=== PATIENT | male | born 1980 | race African-American/Black ===

== ENCOUNTER 2017-07-05 09:00 | Inpatient (IN) | payer OTHER ==
[2017-07-05 09:23] VITALS: BMI 23.0
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
[2017-07-05] MEDS ORDERED: MAGNESIUM CITRATE 300 ML BOTTLE PO PRN (11:35)
[2017-07-05] MEDS ORDERED: LOPERAMIDE HCL 2 MG CAPSULE PO PRN (11:35)
[2017-07-05] MEDS ORDERED: IBUPROFEN 400 MG TABLET (FP) PO PRN (11:35)
[2017-07-05] MEDS ORDERED: guaiFENesin/D-METHORPHAN HB 10 ML UNIT-DOSE CUPS PO PRN (11:35)
[2017-07-05] MEDS ORDERED: MAG HYDROX/AL HYDROX/SIMETH 30 ML UNIT-DOSE CUP PO PRN (11:35)
[2017-07-05] MEDS ORDERED: P-EPHED 60MG/TRIPROLIDI 2.5MG TABLET PO PRN (11:35)
[2017-07-05] MEDS ORDERED: NICOTINE POLACRILEX 2 MG GUM BUC PRN (11:35)
[2017-07-05] MEDS ORDERED: MAGNESIUM HYDROX 2400MG/30ML ORAL SUSPENSION 30 ML CUP PO PRN (11:35)
[2017-07-05] MEDS ORDERED: MENTHOL/PHENOL 1 EACH UD MM PRN (11:35)
[2017-07-05] MEDS ORDERED: METHADONE HCL 10 MG TABLET (FOR DETOX USE ONLY) PO ONE ×2 (11:50→23:00)
[2017-07-05] MEDS: diazePAM 5 MG TABLET PO PRN ×2 (13:39→22:27)
[2017-07-05] MEDS: NICOTINE 21 MG/24 HOURS TOPICAL PATCH TD SCH (13:40)
--- NOTE | 2017-07-05 15:54 | CONSULT ---
[facility] Psychiatric Consult - Data Date of interview: 07/05/17 Admission source: [facility] Identifying data: Pt. is a 36 year old single male, father of two, unemployed, homeless but reports that he recevies food stamps. This is patient's first admission to detox. Pt. admitted to for heroin and cocaine dependence. Substance Abuse History: Following information confirmed with Mr Marcos: Smoking Cessation. Smoking history: Current every day smoker. Have you smoked in the past 12 months: Yes. Aproximately how many cigarettes per day: 10. Hx Chewing Tobacco Use: No. Initiated information on smoking cessation: Yes. ' Breaking Loose' booklet given: 07/05/17. - Substance & Tx. History. Hx Alcohol Use: No. Hx Substance Use: Yes. Substance Use Type: Cocaine, Heroin. - Substances Abused. Heroin. Route: Inhalation. Frequency: Daily. Amount used: 10 bags. Age of first use: 26. Date of Last Use: 07/05/17. Cocaine. Route: Inhalation. Frequency: Daily. Amount used: 5 bags. Age of first use : 20. Date of Last Use: 07/04/17 Medical History: hx of gonnorhea and chalmydia Psychiatric History: Pt. denies h/o psychiatric hospitalizations, suicide attempt and outpatient care. 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 Pt. denies suicidal and homicida ideation. Physical/Sexual Abuse/Trauma History: Denies. Mental Status Exam - Mental Status Exam Alert and Oriented to: Time, Place, Person Cognitive Function: Good Patient Appearance: Well Groomed Mood: Euthymic Affect: Mood Congruent Patient Behavior: Appropriate, Cooperative Speech Pattern: Clear, Appropriate Voice Loudness: Normal Thought Process: Intact, Goal Oriented Thought Disorder: Not Present Hallucinations: Denies Suicidal Ideation: Denies Homicidal Ideation: Denies Insight/Judgement: Poor Sleep: Poorly Appetite: Fair Muscle strength/Tone: Normal Gait/Station: Normal Psychiatric Findings - Problem List ([place] 1, 2,3) (1) Cocaine dependence Current Visit: Yes Status: Acute (2) Nicotine dependence Current Visit: Yes Status: Acute (3) Opioid dependence with withdrawal Current Visit: Yes Status: Acute (4) Insomnia Current Visit: Yes Status: Acute - Initial Treatment Plan Initial Treatment Plan: Psychoeducation provided. Detoxification in progress. Trazodone 50mg qhs. Benefits and side effects (priapism). Verbal consent given. Will continue to monitor.
[2017-07-05 17:29] LABS: URINE APPEARANCE CLEAR; URINE BILIRUBIN NEGATIVE (NEGATIVE); URINE BLOOD NEGATIVE (NEGATIVE); URINE COLOR YELLOW; URINE GLUCOSE (UA) NEGATIVE (NEGATIVE); URINE KETONE TRACE (NEGATIVE); URINE LEUK ESTERASE NEGATIVE (NEGATIVE); URINE NITRITE NEGATIVE (NEGATIVE); URINE PROTEIN NEGATIVE (NEGATIVE)
[2017-07-05] MEDS: THIAMINE HCL 100 MG TABLET (FP) PO SCH (22:26)
[2017-07-05] MEDS: traZODone HCL 50 MG TABLET (FP) PO SCH (22:26)
[2017-07-06] MEDS ORDERED: METHADONE HCL 10 MG TABLET (FOR DETOX USE ONLY) PO ONE (10:00)
[2017-07-06 10:03] LABS: HEMATOCRIT 35.5 % (35.4-49); HEMOGLOBIN 11.9 GM/dL (11.7-16.9); MCH 31.4 pg (25.7-33.7); MCHC 33.6 g/dl (32.0-35.9); MEAN CELL VOLUME 93.6 fl (80-96); MEAN PLT VOLUME 7.3 fl (7.5-11.1); PLATELET COUNT 380 K/MM3 (134-434); RBC 3.79 M/mm3 (4.00-5.60); RDW 13.5 % (11.9-15.9); WHITE BLOOD COUNT 7.7 K/mm3 (4.0-10.0)
[2017-07-06 10:09] LABS: ALBUMIN 3.7 g/dl (3.4-5.0); ALK PHOS 74 U/L (45-117); ANION GAP 8 (8-16); BILIRUBIN,TOTAL 0.2 mg/dL (0.2-1.0); BLOOD UREA NITROGEN 14 mg/dL (7-18); CALCIUM 8.2 mg/dL (8.5-10.1); CHLORIDE 103 mmol/L (98-107); CO2 30 mmol/L (21-32); CREATININE 0.8 mg/dL (0.7-1.3); GLUCOSE,RANDOM 108 mg/dL (74-106); POTASSIUM 3.8 mmol/L (3.5-5.1); SGOT/AST 21 U/L (15-37); SGPT/ALT 21 U/L (12-78); SODIUM 141 mmol/L (136-145); TOT PROT 6.7 g/dl (6.4-8.2)
--- NOTE | 2017-07-06 10:33 | EKG ---
Test Reason : Blood Pressure : / mmHG Vent. Rate : 055 BPM Atrial Rate : 055 BPM P-R Int : 166 ms QRS Dur : 096 ms QT Int : 446 ms P-R-T Axes : 037 081 064 degrees QTc Int : 426 ms SINUS BRADYCARDIA OTHERWISE NORMAL ECG NO PREVIOUS ECGS AVAILABLE Confirmed by SCOTT DUGGAN MD ([id number]) on 07/06/2017 10:32:26 AM Referred By: Confirmed By:SCOTT DUGGAN MD
--- NOTE | 2017-07-06 10:49 | PN ---
BHS COWS - Scale Resting Pulse: 0= [place] 80 or Below Sweatin= Chills/Flushing Restless Observation: 3= Extraneous Movement Pupil Size: 0= Normal to Room Light Bone or Joint Aches: 4=Acute Joint/Muscle Pain Runny Nose/ Eye Tearin= None GI Upset > 30mins: 0= None Tremor Observation of Outstretched Hands: 2= Slight Tremor Visible Yawning Observation: 1= 1-2x During Session Anxiety or Irritability: 2=Irritable/Anxious Goose Flesh Skin: 0=Smooth Skin COWS Score: 13 BHS Progress Note (SOAP) Subjective: ANXIETY,SWEATS/CHILLS,FATIGUE. Objective: 07/06/17 10:48 Vital Signs 07/06/17 07/06/17 04:16 06:05 Temperature 96.1 F L Pulse Rate 55 L Respiratory 18 16 Rate Blood Pressure 94/57 Laboratory Last Values WBC 7.7 K/mm3 (4.0-10.0) 07/06/17 05:40 RBC 3.79 M/mm3 (4.00-5.60) L 07/06/17 05:40 Hgb 11.9 GM/dL (11.7-16.9) 07/06/17 05:40 Hct 35.5 % (35.4-49) 07/06/17 05:40 MCV 93.6 fl (80-96) 07/06/17 05:40 MCH 31.4 pg (25.7-33.7) 07/06/17 05:40 MCHC 33.6 g/dl (32.0-35.9) 07/06/17 05:40 RDW 13.5 % (11.9-15.9) 07/06/17 05:40 Plt Count 380 K/MM3 (134-434) 07/06/17 05:40 MPV 7.3 fl (7.5-11.1) L 07/06/17 05:40 Sodium 141 mmol/L (136-145) 07/06/17 05:40 Potassium 3.8 mmol/L (3.5-5.1) 07/06/17 05:40 Chloride 103 mmol/L (98-107) 07/06/17 05:40 Carbon Dioxide 30 mmol/L (21-32) 07/06/17 05:40 Anion Gap 8 (8-16) 07/06/17 05:40 BUN 14 mg/dL (7-18) 07/06/17 05:40 Creatinine 0.8 mg/dL (0.7-1.3) 07/06/17 05:40 Creat Clearance w eGFR > 60 (>60) 07/06/17 05:40 Random Glucose 108 mg/dL (74-106) H 07/06/17 05:40 Calcium 8.2 mg/dL (8.5-10.1) L 07/06/17 05:40 Total Bilirubin 0.2 mg/dL (0.2-1.0) 07/06/17 05:40 AST 21 U/L (15-37) 07/06/17 05:40 ALT 21 U/L (12-78) 07/06/17 05:40 Alkaline Phosphatase 74 U/L (45-117) 07/06/17 05:40 Total Protein 6.7 g/dl (6.4-8.2) 07/06/17 05:40 Albumin 3.7 g/dl (3.4-5.0) 07/06/17 05:40 Urine Color Yellow 07/05/17 16:30 Urine Appearance Clear 07/05/17 16:30 Urine pH 5.0 (5.0-8.0) 07/05/17 16:30 Ur Specific [place] 1.031 (1.001-1.035) 07/05/17 16:30 Urine Protein Negative (NEGATIVE) 07/05/17 16:30 Urine Glucose (UA) Negative (NEGATIVE) 07/05/17 16:30 Urine Ketones Trace (NEGATIVE) H 07/05/17 16:30 Urine Blood Negative (NEGATIVE) 07/05/17 16:30 Urine Nitrite Negative (NEGATIVE) 07/05/17 16:30 Urine Bilirubin Negative (NEGATIVE) 07/05/17 16:30 Urine Urobilinogen 2.0 mg/dL (0.2-1.0) 07/05/17 16:30 Ur Leukocyte Esterase Negative (NEGATIVE) 07/05/17 16:30 Assessment: 07/06/17 10:49 WITHDRAWAL SX Plan: CONTINUE DETOX.
[2017-07-06] MEDS: diazePAM 5 MG TABLET PO PRN ×2 (10:55→22:10)
[2017-07-06] MEDS: PRENATAL VITAMINS W/ FOLIC ACID TABLET (FP) PO SCH (10:55)
[2017-07-06] MEDS: NICOTINE 21 MG/24 HOURS TOPICAL PATCH TD SCH (10:56)
[2017-07-06] MEDS: traZODone HCL 50 MG TABLET (FP) PO SCH (22:10)
[2017-07-06] MEDS: THIAMINE HCL 100 MG TABLET (FP) PO SCH (22:10)
[2017-07-07] MEDS ORDERED: METHADONE HCL 5 MG TABLET (FOR DETOX USE ONLY) PO ONE (10:00)
[2017-07-07] MEDS ORDERED: ONDANSETRON *ODT* 4 MG TABLET SL ONE (10:43)
[2017-07-07] MEDS: PRENATAL VITAMINS W/ FOLIC ACID TABLET (FP) PO SCH (10:44)
[2017-07-07] MEDS: NICOTINE 21 MG/24 HOURS TOPICAL PATCH TD SCH (10:45)
[2017-07-07] MEDS: ACETAMINOPHEN 325 MG TABLET (FP) PO PRN ×3 (14:33→22:11)
[2017-07-07] MEDS ORDERED: ONDANSETRON *ODT* 4 MG TABLET SL PRN (14:55)
--- NOTE | 2017-07-07 14:59 | PN ---
BHS COWS - Scale Resting Pulse: 1= [place] 81-100 Sweatin= Chills/Flushing Restless Observation: 1= Difficult to Sit Still Pupil Size: 0= Normal to Room Light Bone or Joint Aches: 1= Mild Discomfort Runny Nose/ Eye Tearin= None GI Upset > 30mins: 5=Frequent Vomit/Diarrhea Tremor Observation of Outstretched Hands: 2= Slight Tremor Visible Yawning Observation: 0= None Anxiety or Irritability: 4=Extreme Anxiety Goose Flesh Skin: 0=Smooth Skin COWS Score: 15 BHS Progress Note (SOAP) Subjective: Stomach Cramping, Vomiting, Anxious, Tremors. Objective: PATIENT A & O X 3, OBSERVED AMBULATING ON UNIT. NO ACUTE DISTRESS. 07/07/17 14:57 Vital Signs Temperature 97.5 F L 07/07/17 13:59 Pulse Rate 63 07/07/17 13:59 Respiratory Rate 16 07/07/17 13:59 Blood Pressure 111/79 07/07/17 13:59 O2 Sat by Pulse Oximetry (%) Laboratory Tests 07/05/17 07/06/17 07/06/17 16:30 05:40 05:40 WBC 7.7 RBC 3.79 L Hgb 11.9 Hct 35.5 MCV 93.6 MCH 31.4 MCHC 33.6 RDW 13.5 Plt Count 380 MPV 7.3 L Sodium 141 Potassium 3.8 Chloride 103 Carbon Dioxide 30 Anion Gap 8 BUN 14 Creatinine 0.8 Creat Clearance w eGFR > 60 Random Glucose 108 H Calcium 8.2 L Total Bilirubin 0.2 AST 21 ALT 21 Alkaline Phosphatase 74 Total Protein 6.7 Albumin 3.7 Urine Color Yellow Urine Appearance Clear Urine pH 5.0 Ur Specific [place] 1.031 Urine Protein Negative Urine Glucose (UA) Negative Urine Ketones Trace H Urine Blood Negative Urine Nitrite Negative Urine Bilirubin Negative Urine Urobilinogen 2.0 Ur Leukocyte Esterase Negative RPR Titer 07/06/17 05:40 WBC RBC Hgb Hct MCV MCH MCHC RDW Plt Count MPV Sodium Potassium Chloride Carbon Dioxide Anion Gap BUN Creatinine Creat Clearance w eGFR Random Glucose Calcium Total Bilirubin AST ALT Alkaline Phosphatase Total Protein Albumin Urine Color Urine Appearance Urine pH Ur Specific [place] Urine Protein Urine Glucose (UA) Urine Ketones Urine Blood Urine Nitrite Urine Bilirubin Urine Urobilinogen Ur Leukocyte Esterase RPR Titer Nonreactive LABS NOTED. Assessment: 07/07/17 14:57 WITHDRAWAL SYMPTOMS. Plan: CONTINUE DETOX. PRN ZOFRAN SL FOR VOMITING. INCREASE DAILY PO FLUID INTAKE.
[2017-07-07] MEDS: diazePAM 5 MG TABLET PO PRN (18:13)
[2017-07-07] MEDS: traZODone HCL 50 MG TABLET (FP) PO SCH (22:10)
[2017-07-07] MEDS: THIAMINE HCL 100 MG TABLET (FP) PO SCH (22:10)
[2017-07-08] MEDS: ACETAMINOPHEN 325 MG TABLET (FP) PO PRN (01:13)
[2017-07-08] MEDS: hydrOXYzine PAMOATE 25 MG CAPSULE (FP) PO PRN ×3 (01:14→22:02)
[2017-07-08] MEDS: diazePAM 5 MG TABLET PO PRN (02:56)
[2017-07-08] MEDS ORDERED: METHADONE HCL 5 MG TABLET (FOR DETOX USE ONLY) PO ONE ×2 (10:00→13:00)
[2017-07-08] MEDS: NICOTINE 21 MG/24 HOURS TOPICAL PATCH TD SCH (12:00)
[2017-07-08] MEDS: PRENATAL VITAMINS W/ FOLIC ACID TABLET (FP) PO SCH (12:00)
[2017-07-08] MEDS ORDERED: METHADONE HCL 10 MG TABLET (FOR DETOX USE ONLY) PO ONE (12:20)
--- NOTE | 2017-07-08 15:42 | PN ---
BHS Progress Note (SOAP) Subjective: Anxious, sweating, interrupted sleep Objective: 07/08/17 15:39 Last Vital Signs Temp Pulse Resp BP Pulse Ox 97.1 F L 80 20 103/71 07/08/17 14:16 07/08/17 14:16 07/08/17 14:16 07/08/17 14:16 Laboratory Tests 07/05/17 07/06/17 07/06/17 16:30 05:40 05:40 WBC 7.7 RBC 3.79 L Hgb 11.9 Hct 35.5 MCV 93.6 MCH 31.4 MCHC 33.6 RDW 13.5 Plt Count 380 MPV 7.3 L Sodium 141 Potassium 3.8 Chloride 103 Carbon Dioxide 30 Anion Gap 8 BUN 14 Creatinine 0.8 Creat Clearance w eGFR > 60 Random Glucose 108 H Calcium 8.2 L Total Bilirubin 0.2 AST 21 ALT 21 Alkaline Phosphatase 74 Total Protein 6.7 Albumin 3.7 Urine Color Yellow Urine Appearance Clear Urine pH 5.0 Ur Specific [place] 1.031 Urine Protein Negative Urine Glucose (UA) Negative Urine Ketones Trace H Urine Blood Negative Urine Nitrite Negative Urine Bilirubin Negative Urine Urobilinogen 2.0 Ur Leukocyte Esterase Negative RPR Titer 07/06/17 05:40 WBC RBC Hgb Hct MCV MCH MCHC RDW Plt Count MPV Sodium Potassium Chloride Carbon Dioxide Anion Gap BUN Creatinine Creat Clearance w eGFR Random Glucose Calcium Total Bilirubin AST ALT Alkaline Phosphatase Total Protein Albumin Urine Color Urine Appearance Urine pH Ur Specific [place] Urine Protein Urine Glucose (UA) Urine Ketones Urine Blood Urine Nitrite Urine Bilirubin Urine Urobilinogen Ur Leukocyte Esterase RPR Titer Nonreactive Labs noted Assessment: 07/08/17 15:41 Withdrawal symptoms Plan: Continue detox
[2017-07-08] MEDS: traZODone HCL 50 MG TABLET (FP) PO SCH (22:02)
[2017-07-08] MEDS: THIAMINE HCL 100 MG TABLET (FP) PO SCH (22:02)
[2017-07-09] MEDS: PRENATAL VITAMINS W/ FOLIC ACID TABLET (FP) PO SCH (09:33)
[2017-07-09] MEDS: hydrOXYzine PAMOATE 25 MG CAPSULE (FP) PO PRN ×2 (09:33→23:07)
[2017-07-09] MEDS: ACETAMINOPHEN 325 MG TABLET (FP) PO PRN (09:34)
[2017-07-09] MEDS: NICOTINE 21 MG/24 HOURS TOPICAL PATCH TD SCH (09:35)
[2017-07-09] MEDS ORDERED: METHADONE HCL 10 MG TABLET (FOR DETOX USE ONLY) PO ONE (10:00)
--- NOTE | 2017-07-09 12:35 | PN ---
BHS Progress Note (SOAP) Subjective: Nausea Abd pain sweats Objective: 07/09/17 12:34 A & O x 3 irritable Ambulatory with steady gait Vital Signs Temperature 98.6 F 07/09/17 09:54 Pulse Rate 62 07/09/17 09:54 Respiratory Rate 18 07/09/17 09:54 Blood Pressure 106/69 07/09/17 09:54 O2 Sat by Pulse Oximetry (%) Assessment: 07/09/17 12:34 withdrawal sx Plan: continue detox increase hydration
[2017-07-09 22:14] VITALS: BP 98/56; PULSE 67; TEMP 97.6
[2017-07-09] MEDS: traZODone HCL 50 MG TABLET (FP) PO SCH (22:20)
[2017-07-09] MEDS: THIAMINE HCL 100 MG TABLET (FP) PO SCH (22:20)
[2017-07-10] MEDS: hydrOXYzine PAMOATE 25 MG CAPSULE (FP) PO PRN (03:19)
[2017-07-10] MEDS ORDERED: METHADONE HCL 5 MG TABLET (FOR DETOX USE ONLY) PO ONE ×2 (06:00→09:00)
--- NOTE | 2017-07-10 13:56 | DS ---
[facility] Detox Discharge Summary Admission Date: 07/05/17 Discharge Date: 07/10/17 - History Present History: Cocaine Dependence, Opioid Dependence Additional Comments: PATIENT RETURNING TO [facility] ([facility]) FOR AFTERCARE. PATIENT WAS DISCHARGED FROM DETOX UNIT IN STABLE MEDICAL CONDITION. Pertinent Past History: Depression, Nicotine Dependence, Weight Loss, Insomnia, Bipolar Disorder. - Physical Exam Results Vital Signs: Vital Signs Temperature 97.6 F 07/09/17 22:14 Pulse Rate 67 07/09/17 22:14 Respiratory Rate 18 07/09/17 22:14 Blood Pressure 98/56 07/09/17 22:14 O2 Sat by Pulse Oximetry (%) Pertinent Admission Physical Exam Findings: WITHDRAWAL SYMPTOMS. Laboratory Tests 07/05/17 07/06/17 07/06/17 16:30 05:40 05:40 WBC 7.7 RBC 3.79 L Hgb 11.9 Hct 35.5 MCV 93.6 MCH 31.4 MCHC 33.6 RDW 13.5 Plt Count 380 MPV 7.3 L Sodium 141 Potassium 3.8 Chloride 103 Carbon Dioxide 30 Anion Gap 8 BUN 14 Creatinine 0.8 Creat Clearance w eGFR > 60 Random Glucose 108 H Calcium 8.2 L Total Bilirubin 0.2 AST 21 ALT 21 Alkaline Phosphatase 74 Total Protein 6.7 Albumin 3.7 Urine Color Yellow Urine Appearance Clear Urine pH 5.0 Ur Specific [place] 1.031 Urine Protein Negative Urine Glucose (UA) Negative Urine Ketones Trace H Urine Blood Negative Urine Nitrite Negative Urine Bilirubin Negative Urine Urobilinogen 2.0 Ur Leukocyte Esterase Negative RPR Titer 07/06/17 05:40 WBC RBC Hgb Hct MCV MCH MCHC RDW Plt Count MPV Sodium Potassium Chloride Carbon Dioxide Anion Gap BUN Creatinine Creat Clearance w eGFR Random Glucose Calcium Total Bilirubin AST ALT Alkaline Phosphatase Total Protein Albumin Urine Color Urine Appearance Urine pH Ur Specific [place] Urine Protein Urine Glucose (UA) Urine Ketones Urine Blood Urine Nitrite Urine Bilirubin Urine Urobilinogen Ur Leukocyte Esterase RPR Titer Nonreactive LABS NOTED. - Treatment Hospital Course: Detox Protocol Followed, Detoxed Safely, Responded well, Discharged Condition Good Patient has Accepted a Rehab Referral to: PATIENT GOING TO [facility] - Medication Discharge Medications: Ambulatory Orders NK [No Known Home Medication] 07/05/17 - Diagnosis (1) Bipolar disorder Status: Chronic Qualifiers: Active/Remission status: remission status unspecified Qualified Code(s): F31.9 - Bipolar disorder, unspecified (2) Cocaine dependence Status: Chronic Qualifiers: Substance use status: uncomplicated Qualified Code(s): F14.20 - Cocaine dependence, uncomplicated (3) Depression Status: Chronic Qualifiers: Depression Type: unspecified Qualified Code(s): F32.9 - Major depressive disorder, single episode, unspecified (4) Nicotine dependence Status: Chronic Qualifiers: Nicotine product type: cigarettes Substance use status: in withdrawal Qualified Code(s): F17.213 - Nicotine dependence, cigarettes, with withdrawal (5) Opioid dependence with withdrawal Status: Acute (6) Weight loss Status: Acute (7) Insomnia Status: Acute Qualifiers: Insomnia type: unspecified Qualified Code(s): G47.00 - Insomnia, unspecified - AMA Did Patient Leave Against Medical Advice: No
== END 2017-07-10 09:00 | disposition home or self-care (01) | DRG 773 ==
LOC: YASAS 09:00 → Y3N 11:09
PROVIDERS: ADMIT Internal Medicine; ATTEND Internal Medicine
PROC: HZ2ZZZZ Detoxification Services for Substance Abuse Treatment (ICD-10-PCS; principal; 2017-07-05)
DX: F11.23 Opioid dependence with withdrawal (principal); F14.20 Cocaine dependence, uncomplicated; F17.213 Nicotine dependence, cigarettes, with withdrawal; F31.9 Bipolar disorder, unspecified; F32.9 Major depressive disorder, single episode, unspecified; G47.00 Insomnia, unspecified; Z87.438 Personal history of other diseases of male genital organs; Z87.898 Personal history of other specified conditions; Z59.0 Homelessness
CPT/HCPCS: 36415; 80053; 81003; 85027; 86593; 93005; 93010

== ENCOUNTER 2021-08-29 19:21 | Inpatient (IN) | payer OTHER ==
[2021-08-29] MEDS ORDERED: BENZOCAINE/MENTHOL (CHLORASEPTIC ) LOZENGE MM PRN (20:13)
[2021-08-29] MEDS ORDERED: guaiFENesin 200 MG/10 ML 10 ML UNIT-DOSE CUPS PO PRN (20:13)
[2021-08-29] MEDS ORDERED: NICOTINE POLACRILEX 2 MG GUM BUC PRN (20:13)
[2021-08-29] MEDS ORDERED: LOPERAMIDE HCL 2 MG CAPSULE PO PRN (20:13)
[2021-08-29] MEDS ORDERED: BISMUTH SUBSALICYLATE 524 MG/30 ML PO PRN (20:13)
[2021-08-29] MEDS ORDERED: NALOXONE HCL 0.4 MG/ML VIAL IM PRN (20:13)
[2021-08-29] MEDS ORDERED: DICYCLOMINE HCL 10 MG CAPSULE PO PRN (20:13)
[2021-08-29] MEDS ORDERED: MAG HYDROX/AL HYDROX/SIMETH 30 ML UNIT-DOSE CUP PO PRN (20:13)
[2021-08-29] MEDS ORDERED: IBUPROFEN 400 MG TABLET (FP) PO PRN (20:13)
[2021-08-29] MEDS ORDERED: ONDANSETRON *ODT* 4 MG TABLET SL PRN (20:13)
[2021-08-29] MEDS ORDERED: MAGNESIUM CITRATE 300 ML BOTTLE PO PRN (20:13)
[2021-08-29] MEDS ORDERED: ACETAMINOPHEN 325 MG TABLET (FP) PO PRN ×2 (20:13)
[2021-08-29] MEDS ORDERED: MAGNESIUM HYDROX 2400MG/30ML ORAL SUSPENSION 30 ML CUP PO PRN (20:13)
[2021-08-29] MEDS ORDERED: P-EPHED 60MG/TRIPROLIDI 2.5MG TABLET PO PRN (20:13)
[2021-08-29 21:03] VITALS: BMI 21.5
[2021-08-29] MEDS ORDERED: MELATONIN 5 MG TABLETS PO SCH (22:00)
[2021-08-30] MEDS: THIAMINE HCL 100 MG TABLET (FP) PO SCH ×2 (00:41→22:43)
[2021-08-30] MEDS ORDERED: cloNIDine HCL 0.1 MG TABLET PO PRN (09:26)
[2021-08-30] MEDS ORDERED: diazePAM 5 MG TABLET PO PRN (10:32)
[2021-08-30] MEDS ORDERED: methaDONE HCL 10 MG TABLET (FOR DETOX USE ONLY) ONE (11:24)
[2021-08-30] MEDS: PRENATAL VITAMINS W/ FOLIC ACID TABLET (FP) PO SCH (11:27)
[2021-08-30] MEDS: NICOTINE 14 MG/24 HOURS TOPICAL PATCH TD SCH (11:29)
[2021-08-30 12:51] LABS: HEMATOCRIT 35.6 % (35.4-49); HEMOGLOBIN 11.7 GM/dL (11.7-16.9); MCH 31.5 pg (25.7-33.7); MCHC 32.9 g/dl (32.0-35.9); MEAN CELL VOLUME 95.9 fl (80-96); MEAN PLT VOLUME 7.1 fl (7.5-11.1); PLATELET COUNT 326 10^3/uL (134-434); RBC 3.72 M/mm3 (4.00-5.60); RDW 13.2 % (11.9-15.9); WHITE BLOOD COUNT 4.3 K/mm3 (4.0-10.0)
[2021-08-30 13:07] LABS: CALCIUM 8.8 mg/dL (8.5-10.1)
[2021-08-30 13:08] LABS: ALBUMIN 3.3 g/dl (3.4-5.0); BLOOD UREA NITROGEN 15.2 mg/dL (7-18)
[2021-08-30 13:11] LABS: CREATININE 0.7 mg/dL (0.55-1.3)
[2021-08-30 13:12] LABS: BILIRUBIN,TOTAL 0.2 mg/dL (0.2-1); TOT PROT 6.1 g/dl (6.4-8.2)
[2021-08-30 14:40] LABS: PH,URINE 6.5 (5.0-8.0); URINE APPEARANCE CLEAR; URINE BILIRUBIN NEGATIVE (NEGATIVE); URINE COLOR YELLOW; URINE GLUCOSE (UA) NEGATIVE (NEGATIVE); URINE KETONE NEGATIVE (NEGATIVE); URINE LEUK ESTERASE NEGATIVE (NEGATIVE); URINE NITRITE NEGATIVE (NEGATIVE); URINE PROTEIN NEGATIVE (NEGATIVE); URINE UROBILINOGEN 0.2 mg/dL (0.2-1.0)
[2021-08-30] MEDS: hydrOXYzine PAMOATE 25 MG CAPSULE (FP) PO PRN (18:31)
[2021-08-30] MEDS: MELATONIN 5 MG TABLETS PO SCH (22:43)
[2021-08-30] MEDS: METHOCARBAMOL 500 MG TABLET PO PRN (22:43)
[2021-08-31] MEDS ORDERED: methaDONE HCL 10 MG TABLET (FOR DETOX USE ONLY) PO ONE (10:00)
[2021-08-31] MEDS: METHOCARBAMOL 500 MG TABLET PO PRN ×2 (10:05→17:06)
[2021-08-31] MEDS: PRENATAL VITAMINS W/ FOLIC ACID TABLET (FP) PO SCH (10:05)
[2021-08-31] MEDS: NICOTINE 14 MG/24 HOURS TOPICAL PATCH TD SCH (10:06)
[2021-08-31] MEDS: hydrOXYzine PAMOATE 25 MG CAPSULE (FP) PO PRN ×3 (11:37→23:46)
[2021-08-31 14:08] LABS: SARS-CoV-2 NAA Not Detected (Not Detected)
[2021-08-31] MEDS ORDERED: QUEtiapine FUMARATE 100 MG TABLET (FP) PO ONE (17:22)
[2021-08-31] MEDS: THIAMINE HCL 100 MG TABLET (FP) PO SCH (22:57)
[2021-08-31] MEDS: MELATONIN 5 MG TABLETS PO SCH ×2 (22:57→23:45)
[2021-09-01 09:16] VITALS: PULSE 79
[2021-09-01] MEDS ORDERED: methaDONE HCL 10 MG TABLET (FOR DETOX USE ONLY) ONE (09:30)
[2021-09-01] MEDS: PRENATAL VITAMINS W/ FOLIC ACID TABLET (FP) PO SCH (10:55)
[2021-09-01] MEDS: NICOTINE 14 MG/24 HOURS TOPICAL PATCH TD SCH (10:58)
[2021-09-01 14:08] VITALS: BP 117/86; TEMP 973.1
[2021-09-01] MEDS ORDERED: QUEtiapine FUMARATE 100 MG TABLET (FP) PO SCH (22:00)
[2021-09-02] MEDS ORDERED: methaDONE HCL 10 MG TABLET (FOR DETOX USE ONLY) PO ONE (10:00)
== END 2021-09-01 13:45 | disposition left against medical advice (07) | DRG 770 ==
LOC: YASAS 19:21 → Y6N 23:25
PROVIDERS: ADMIT Allergy & Immunology; ATTEND Allergy & Immunology
PROC: HZ2ZZZZ Detoxification Services for Substance Abuse Treatment (ICD-10-PCS; principal; 2021-08-29)
DX: F11.23 Opioid dependence with withdrawal (principal); F10.230 Alcohol dependence with withdrawal, uncomplicated; F14.20 Cocaine dependence, uncomplicated; F17.210 Nicotine dependence, cigarettes, uncomplicated; F19.280 Other psychoactive substance dependence with psychoactive substance-induced anxiety disorder; F19.282 Other psychoactive substance dependence with psychoactive substance-induced sleep disorder; F19.24 Other psychoactive substance dependence with psychoactive substance-induced mood disorder; F25.9 Schizoaffective disorder, unspecified; G47.00 Insomnia, unspecified; Z86.19 Personal history of other infectious and parasitic diseases; Z56.0 Unemployment, unspecified; Z59.00 Homelessness unspecified
CPT/HCPCS: 36415; 80053; 81003; 85027; 86780; 93005; 93010; C9803-CS; U0003; U0005